=== PATIENT | female | born 1935 | race Caucasian/White ===

== ENCOUNTER 2016-11-20 14:20 | Inpatient (IN) | payer MEDICARE, BC ==
--- NOTE | ~2016-11-20 | DS ---
Discharge Summary [facility] [address] [place]. [address] NAME: KELLY VALE : 33 STATUS : DIS IN PAT#: [id number] AGE: 80 ADM/REG DATE : 11/20/16 MR#: [id number] REPORT SERV DATE: 11/30/16 DICTATED BY: YASMIN GALVAN DATE: 11/29/16 REPORT STATUS : Draft TRANSCRIBED BY: MODL DATE: 11/29/16 ADMISSION DATE: 11/20/2016 DISCHARGE DATE: 11/29/2016 PRINCIPAL DIAGNOSIS: Right hemispheric stroke with left-sided hemiparesis. SECONDARY DIAGNOSES: 1. Non ST-segment elevation myocardial infarction. 2. Type 2 diabetes. 3. Atrial fibrillation. 4. Hypertension. HISTORY OF PRESENT ILLNESS: Please see Dr. Griffin's dictation on 11/20/2016. HOSPITAL COURSE: Please see Dr. Rhodes's dictation on 11/28/2016 on interim summary. Subsequent hospital course, the patient was seen by Karina approved for transition of care to their facility. She had use of her left side, no visual field cuts or sensory deficit; however, some changes were made to her regimen. Her non-STEMI was felt to be secondary to the CVA itself and due to adrenergic surge she was changed over to labetalol instead of the nifedipine XL which had been crushed and put into her PEG tube against guidelines. She will continue Altace 10 mg per day, metformin 500 mg b.i.d., spironolactone 25 mg b.i.d., aspirin 325 mg per day, Lipitor 80 mg q.h.s. Continue PEG feeding with Glucerna. Follow up with Dr. Adriel Rivers following [facility] discharge. Greater than 30 minutes were spent in care of this patient on discharge planning on discharge day. DICTATED BY: Yu Archibald/ALBERTO Yasmin Galvan M.D. / [id number] CC: Yu Archibald M.D. [facility]
--- NOTE | ~2016-11-20 | CN ---
Consultation Report [facility] [address] [place]. [address] NAME: KELLY VALE : 33 STATUS : ADM IN [facility]#: [id number] AGE: 80 ADM/REG DATE : 11/20/16 MR#: [id number] REPORT SERV DATE: 11/21/16 DICTATED BY: CATHERINE CADENA DATE: 11/21/16 REPORT STATUS : Draft TRANSCRIBED BY: MODTracie DATE: 11/21/16 NEUROLOGICAL CRITICAL CARE VISIT DATE OF CONSULTATION: The patient was previously in room 129, transferred to CCU bed 8. HISTORY OF PRESENT ILLNESS: Ms. Vale is an 80-year-old female who was admitted with episode of TIA, presenting to the emergency room with left facial weakness and slurring of her speech, which resolved within three hours of onset. The patient's symptoms were improving gradually in the emergency room and resolved when the patient arrived on the floor and to her room in 109. The patient has a history of diabetes mellitus and hypertension, which have been under good control. On admission to the emergency room, the patient had a CT scan of the head which showed no abnormal changes, and CTA of the neck and brain which showed no occlusion, stenosis, or other abnormalities. The patient was started on aspirin and blood pressure was maintained in the 150 systolic range. The patient was evaluated by me after she arrived to room 109. At the time of the patient's neurological examination, examination of the cranial nerves showed no evidence of deficits and there was no facial weakness. The patient's voice appeared slightly raspy, but there was no true dysarthria, and there was no aphasia. The patient stated she was back to her baseline. The only subtle finding on cerebellar exam was very minimal endpoint tremor in the right smunpa-po-tbia. Around 1145 hours, the patient's nurse noted that patient was having complaints of right arm pain and indigestion. The nurse practitioner on-call was notified. The patient received Tums. An EKG was performed and showed changes compatible with right bundle-branch block, which apparently the patient had prior to admission. The patient was evaluated in the morning by Dr. Rhodes, the hospitalist with Internal Medicine Service, who found that the patient had significant weakness involving the left side of her body, had left facial weakness, and appeared to be lethargic. The patient did receive 0.5 mg of Ativan late last night. Emergency CT scan of the head was obtained, which showed hypodense area in the right MCA territory and anterior middle portions. The patient's troponins were elevated in the range of 60. Cardiology was called, and the patient was seen emergently by Cardiology attending. However, the patient was not started on heparin in view of the presence of the large infarction noted on the CT. The danger of bleeding into the large stroke was considered. The patient was seen by me emergently, appeared to be somnolent/lethargic, but arousable, followed simple commands, appeared to have gaze preference to the right; her eyes did cross midline. The rest of the neurological examination showed presence of left facial central weakness, left hemiplegia; left arm was flaccid and the left leg was flaccid. Right arm and right leg had strength within normal range. The patient had no evidence of aphasia; however, was somnolent and may have had slight dysarthria. Deep tendon reflexes were decreased in the left arm, trace in right arm, absent in both legs, which was a finding prior when the patient was evaluated last night. The patient's blood pressure currently was 150/70. The patient's heart rate was approximately 62 beats per minute, respirations were 18, and the patient was afebrile. I discussed the patient's case with the machine cage maker, Dr. Snowden, who agreed to transfer the patient to CCU in view of increasing lethargy and the Consultation Report [address] [place]. [address] NAME: KELLY VALE : 33 STATUS : ADM IN [facility]#: [id number] AGE: 80 ADM/REG DATE : 11/20/16 MR#: [id number] REPORT SERV DATE: 11/21/16 DICTATED BY: CATHERINE CADENA DATE: 11/21/16 REPORT STATUS : Draft TRANSCRIBED BY: MODL DATE: 11/21/16 possibility of needing intubation. The patient was referred for emergent MRI of the brain and MRA of the neck and brain. The MRI scan confirmed the presence of right frontotemporal and insular infarction in the right, which extended to the posterior aspect of the insular ribbon. There was no hemorrhagic infarction, but some amount of localized mass effect was present. MRA of the neck showed no evidence of clot or severe stenosis. MRA of the brain showed decreased flow signal within branches of the right middle cerebral artery corresponding to the location of acute infarct. [place] of [place] was intact. The scan was limited due to motion artifact. The patient was transferred to CCU, was evaluated while in the CCU unit. Her neurological exam at that time remained unchanged since prior to her transfer; however, the patient was somnolent and slightly more difficult to arouse. LABORATORY DATA: Repeat laboratory studies this morning showed troponins of 75.40. CPK of 1304. Glucose of 170. The patient's glycosylated hemoglobin was 5.7. Triglycerides 213, GFR of 47, and creatinine 1.10. IMPRESSION: 1. Acute right middle cerebral artery territory infarct, which appears to be nonhemorrhagic. 2. Acute daz-RP-pfkggfvjl myocardial infarction with markedly elevated troponins. 3. Could not exclude an embolic phenomena with cardiogenic emboli. 4. No evidence of stenosis or clot noted in the neck MRA; however, there was a decreased flow in the region of a stroke on the MRI of the brain. 5. History of hypertension. RECOMMENDATIONS: 1. To monitor the patient frequently with vital checks and neuro signs every hour to two hours. Maintain blood pressure below 185 and above 150. Avoid precipitous drops of blood pressure. DO NOT USE HYDRALAZINE IV. 2. Avoid agents that are very strongly antihypertensive medications that drop blood pressure abruptly and precipitously. If needed, use a small amount of pressors, Levophed to maintain the patient's blood pressure at that mentioned level 150-180 to maintain perfusion to possible residual ischemic area of the left MCA territory. Monitor the patient's respiratory status and consider intubation if the patient has deterioration, use mild hyperventilation initially for a short period of time. Prolonged hyperventilation and respiratory alkalosis has not been proven to be effective in decreasing intracranial pressure in the long run. Although hemispherectomy has been used to relieve malignant pressures secondary to hemispheric stroke, the patient certainly is not at that point at this time. Monitor the patient with repeated CT scans, and we will order a repeat CT scan of the head for tomorrow. A total of 55 minutes was spent taking care of the patient and arranging for transfer to the CCU, coordinating the patient's care. We appreciate Dr. Snowden's help in taking care of this patient. Consultation Report [facility] [address] [place]. [address] NAME: KELLY VALE : 33 STATUS : ADM IN PAT#: [id number] AGE: 80 ADM/REG DATE : 11/20/16 MR#: [id number] REPORT SERV DATE: 11/21/16 DICTATED BY: CATHERINE CADENA DATE: 11/21/16 REPORT STATUS : Draft TRANSCRIBED BY: ALBERTO DATE: 11/21/16 RASHID/ALBERTO Catherine Cadena MD / [id number] CC: Ramses Rhodes M.D.
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
--- NOTE | ~2016-11-20 | IDS ---
Interim Discharge Summary [facility] [address] [place]. [address] NAME: KELLY VALE : 33 STATUS : ADM IN PAT#: [id number] AGE: 80 ADM/REG DATE : 11/20/16 MR#: [id number] REPORT SERV DATE: 11/27/16 DICTATED BY: CLEMENTE RHODES DATE: 11/27/16 REPORT STATUS : Draft TRANSCRIBED BY: MODL DATE: 11/27/16 ADMISSION DATE: 11/20/2016 DISCHARGE DATE: CONSULTANTS: 1. Dr. Catherine Cadena and Dr. Sonam Larsen, Neurology. 2. Dr. Ramu Stein, Cardiology. 3. Dr. Roger Jacinto, GI. PROBLEM LIST: 1. Acute ischemic stroke, right middle cerebral artery, large, 11/20/2016. 2. Acute vcv-LY-szfkyerta myocardial infarction, 11/20/2016. 3. Hypertension. 4. History of breast cancer, left side, resected 2003. 5. Paroxysmal atrial fibrillation. 6. Diabetes mellitus type 2 with A1c 5.7%. HISTORY: This patient came to the ER at [facility], had trouble sleeping the night before, had some diarrhea. She reportedly dropped a glass in the kitchen. The went to check on her, noticed that her speech was garbled. She was brought to the emergency room. Speech and left hand were reportedly improving. Imaging on admission included CTA of the brain and neck as a stroke protocol. No acute intracranial abnormality. Small right frontal meningioma. Some calcification and atherosclerosis in the carotid siphons. The patient was seen by Neurology, Dr. Cadena. She was admitted to the medical floor. Unfortunately, through that night, she developed right-sided chest pain. There were no acute EKG changes; however, her troponin went up significantly to 63.4 and then 75.4. She was seen by Cardiology, Dr. Ramu Stein early the next morning along with me and we met with Dr. Cadena. Because of the fact that she simultaneously was more drowsy and I noticed significant weakness in her left arm, I had to get a stat CT scan of the brain early on that morning of 11/21/2016. This revealed a large right middle cerebral artery infarction involving the frontal and insular region with mild mass effect. Because of this, Dr. Cadena felt, we could not give her heparin drip likely would normally for an acute WA. We could give her aspirin, but she was also a bit lethargic, so we were concerned about her ability to swallow. Dr. Cadena had her moved to the ICU where blood pressure could be monitored very closely. The patient indeed was not felt to be able to swallow, so had an NG tube for her medications and eventually had GI, Dr. Jacinto, see her and PEG tube was placed on 11/24/2016. The patient has had several followup CTs of the brain, to watch for swelling and edema; most recent 11/27/2016 showing stable appearance of the right MCA territory infarction, now described as having no mass effect and there is no hemorrhage. The patient is starting to move her left arm and hand, moving her left shoulder. She has Interim Discharge Summary [address] [place]. [address] NAME: KELLY VALE : 33 STATUS : ADM IN [facility]#: [id number] AGE: 80 ADM/REG DATE : 11/20/16 MR#: [id number] REPORT SERV DATE: 11/27/16 DICTATED BY: CLEMENTE RHODES DATE: 11/27/16 REPORT STATUS : Draft TRANSCRIBED BY: MODTracie DATE: 11/27/16 always done better with her left leg than the left arm. She is tolerating tube feedings and therapy, and we were planning for her to go to inpatient rehab. Cardiology has been adjusting medications. In addition to aspirin and Lipitor, they have added spironolactone, Altace, and Procardia XL. The patient has developed a small painful ulcer on the right lower lip, suspected to be fever blister, so we have added topical Abreva. The patient has diabetes mellitus with usual therapy with glipizide at home. She has an A1c that is 5.7, but her sugars are now going up over 200, so we are adding metformin. The patient's tube feeding is being tolerated at full dose at this time, it is Jevity 1.2 at 65 mL/h, supplemented with 150 mL of water every six hours. RSG/MODL Clemente Rhodes M.D. / [id number] CC: Clemente Rhodes M.D.
--- NOTE | ~2016-11-20 | CN ---
Consultation Report [facility] [address] [place]. [address] NAME: KELLY VALE : 33 STATUS : ADM IN PAT#: [id number] AGE: 80 ADM/REG DATE : 11/20/16 MR#: [id number] REPORT SERV DATE: 11/21/16 DICTATED BY: PEMA PEREZ DATE: 11/21/16 REPORT STATUS : Draft TRANSCRIBED BY: MODL DATE: 11/21/16 CARDIOLOGY CONSULTATION DATE OF CONSULTATION: 11/21/2016 REASON FOR CONSULTATION: Regarding xij-JS-iahbvvdgh myocardial infarction. HISTORY OF PRESENT ILLNESS: Ms. Vale is a pleasant 80-year-old woman, who is a patient of Dr. Jaden Barbosa. She presented with complaints of left-sided weakness, was thought to be initially TIA at that time. However over the course of the last 24 hours, her symptoms have progressed and now appears to be consistent with a large MCA stroke that was documented on sequential CT scans. In this setting, the patient developed chest discomfort and had a significant troponin elevation with latest troponin up to 64 from less than 0.02 on admission. She is no longer having any chest discomfort. She is showing no signs of congestive heart failure. The patient has a known history of coronary disease, status post remote LAD [place] [address] Kian Ibarra. The patient has multiple risk factors for coronary disease as well. In the preceding weeks, she has had no complaints of chest pain or chest discomfort according to the patient's , who was present at the history exam this morning. PAST MEDICAL HISTORY: Notable for diabetes, hypertension, history of a left mastectomy for breast cancer in 2013, cholecystectomy, knee surgeries, osteoarthritis, coronary disease, status post stent placement by Dr. Ibarra in 2004. FAMILY HISTORY: Negative for premature coronary disease. SOCIAL HISTORY: Negative for tobacco or alcohol. She is . REVIEW OF SYSTEMS: The patient is very lethargic, unable to review systems, although I was able to ask her specifically about chest discomfort, which she had denied this morning, but did note she was having chest discomfort last evening. PHYSICAL EXAMINATION: VITAL SIGNS: Blood pressure this morning of 152/68, it has ranged between 183/77, the current value with the lowest, pulse of 78, respirations 16. IMAGING PROCEDURE: EKG shows sinus rhythm, normal UT interval, right bundle branch block, normal QT interval. No evidence for acute ischemia or infarction. LABORATORY VALUES: Troponin of 63.7. White count 7.4, hematocrit 40, platelet count of 189. Sodium 140, potassium 4, creatinine of 1.1. IMPRESSION: This is an 80-year-old woman who unfortunately seems to be suffering a large MCA Consultation Report [place] [id number] [place]. [address] NAME: KELLY VALE : 33 STATUS : ADM IN PAT#: [id number] AGE: 80 ADM/REG DATE : 11/20/16 MR#: [id number] REPORT SERV DATE: 11/21/16 DICTATED BY: PEMA PEREZ DATE: 11/21/16 REPORT STATUS : Draft TRANSCRIBED BY: ALBERTO DATE: 11/21/16 stroke. The most recent CT scan demonstrated that there is some mass effect. Neurology is seeing the patient and notes that because of the size of the stroke, they do not want her to receive anticoagulation. They did agree to aspirin, which I would continue. The patient does not appear to be able to take oral medications. So, she will need to receive the aspirin rectally. Unfortunately, most of the things we would want to do in regard to her pjo-AT-[id number] TX are contraindicated with her large CVA. We can use intravenous nitroglycerin to try to titrate blood pressure between 150 and 180. If absolutely necessary, we can use some pressor agents to try to increase pressure, but I do believe this does increase the risk for enlarging the myocardial infarction and making her more arrhythmogenic, so we would like to try to avoid it if possible. Likely could consider using Levophed as a possible agent if we need to increase her blood pressure. The choices are obviously very limited. According to Dr. Cadena, systolic blood pressure ranged between 150 and 180. Because of careful titration of blood pressure, we will move the patient to the intermediate medical care unit. CORRINA/ALBERTO Pema Perez M.D. / [id number] CC: Yu Cloud M.D.
--- NOTE | ~2016-11-20 | CN ---
Consultation Report [facility] [address] [place]. [address] NAME: KELLY VALE : 33 STATUS : ADM IN [facility]#: [id number] AGE: 80 ADM/REG DATE : 11/20/16 MR#: [id number] REPORT SERV DATE: 11/23/16 DICTATED BY: ROGER CAMPBELL DATE: 11/23/16 REPORT STATUS : Draft TRANSCRIBED BY: MODL DATE: 11/23/16 INPATIENT CONSULT NOTE DATE OF CONSULTATION: 11/23/2016 REASON FOR CONSULTATION: PEG tube placement. HISTORY OF PRESENT ILLNESS: Mrs. Vale is an 80-year-old female, who was admitted with symptoms of left-sided facial weakness and slurring her speech. Initially, the patient appeared to have recovered and had only suffered a mild TIA. Later on hospitalization, the patient sustained an episode involving significant weakness on the left side of her body and left facial weakness. CT scan of the head was obtained and showed a hypodense area in the right MCA territory and anterior middle portions, apparently just having sustained an acute stroke. The patient was transferred to the CCU for critical care and monitoring. The patient has been doing well over the last several days, however, has been unable to take nutrition on her own and failed a speech and swallow evaluation on the day prior to this consultation. The patient was noted to have a significant vallecular pooling with essentially all consistencies and had a deep penetration and silent aspiration with pudding consistency food and nectar thick liquids. GI was therefore consulted for consideration of PEG tube. The patient has been on aspirin for treatment of her stroke, but no other anticoagulants. The patient denies having had any other prior abdominal surgery aside for cholecystectomy. Currently, no signs of infection. No fevers or chills. REVIEW OF SYSTEMS: All systems reviewed with the patient and were negative aside from what was mentioned in the history of present illness. PAST MEDICAL HISTORY: Includes: 1. Diabetes. 2. Hypertension. 3. History of breast cancer. 4. Status post cholecystectomy. 5. Osteoarthritis. 6. Coronary artery disease, status post stent placement in 2004. FAMILY HISTORY: The patient has no family history of GI-related malignancy. SOCIAL HISTORY: No tobacco, alcohol, or illicit substance use. ALLERGIES: THE PATIENT HAS NO KNOWN DRUG ALLERGIES. OUTPATIENT MEDICATIONS: Include: Consultation Report [place] [id number] [place]. [address] NAME: KELLY VALE : 33 STATUS : ADM IN PAT#: [id number] AGE: 80 ADM/REG DATE : 11/20/16 MR#: [id number] REPORT SERV DATE: 11/23/16 DICTATED BY: ROGER CAMPBELL DATE: 11/23/16 REPORT STATUS : Draft TRANSCRIBED BY: ALBERTO DATE: 11/23/16 1. Benazepril. 2. Lipitor. 3. Toprol. 4. Karina aspirin 325. 5. Multivitamin. 6. Caltrate 600 with vitamin D. 7. Vitamin C. 8. Vitamin E. 9. Folic acid. 10.Glucotrol. 11.Xalatan eyedrops. 12.Ativan. 13.Ultracet tablets. PHYSICAL EXAMINATION: VITAL SIGNS: Most recent vital signs include a temperature of 98.1, pulse of 71, blood pressure is 164/71, and saturating 98% on 2 L nasal cannula oxygen. GENERAL INSPECTION: Reveals an elderly female lying in bed, in no apparent distress. HEENT: Head is normocephalic, atraumatic with normal inspection of oral mucosa, which appears to be slightly dry. The patient does have an NG tube going down her right nares. Pupils appear equal and round. Sclerae nonicteric. NECK: Supple without lymphadenopathy. HEART: Rate is regular with normal S1, S2. LUNGS: Lung sounds are clear to auscultation bilaterally without wheezes, rales, or rhonchi. ABDOMEN: Soft, nontender, nondistended with normoactive bowel sounds. No surgical scars were apparent. No masses were palpated. EXTREMITIES: The patient had no cyanosis, clubbing, or edema. SKIN: No jaundice or rash. NEUROLOGIC: Motor deficits were not tested for the patient was alert and appeared to be oriented. Judgment appeared to be intact. LABORATORY STUDIES: Most recent laboratory results include CBC that showed a white count of 9.5, hemoglobin 13.3, and a platelet count of 161,000. Renal function panel was unremarkable aside from an elevated BUN of 26. Albumin was 3.1. Most recent INR was normal at 1.1 with a PTT of 29. No pertinent imaging to review. ASSESSMENT AND PLAN: Mrs. Vale is a very pleasant 80-year-old female, who unfortunately just sustained a stroke affecting the left side of her body. The patient showed evidence of aspiration with pudding and nectar thick liquids. She has been unable to feed herself. We, therefore, assist with her nutritional needs at least in the short-term with placement of a PEG tube. The patient should be kept n.p.o. I would also hold her aspirin for the time being. Consultation Report [place] [id number] [place]. [address] NAME: KELLY VALE : 33 STATUS : ADM IN [facility]#: [id number] AGE: 80 ADM/REG DATE : 11/20/16 MR#: [id number] REPORT SERV DATE: 11/23/16 DICTATED BY: ROGER CAMPBELL DATE: 11/23/16 REPORT STATUS : Draft TRANSCRIBED BY: ALBERTO DATE: 11/23/16 Thank you very much for this interesting consult. Please call with any questions or concerns you might have. [facility]/ALBERTO Roger Campbell MD / [id number] CC: Ramses Rhodes M.D.
--- NOTE | ~2016-11-20 | EGD ---
EGD REPORT [facility] [address] [address] NAME: SHERIDAN VALE : 33 STATUS : ADM IN PAT#: [id number] AGE: 80 ADM/REG DATE : 11/20/16 MR#: [id number] REPORT SERV DATE: 11/24/16 DICTATED BY: ROGER CAMPBELL DATE: 11/24/16 REPORT STATUS : Draft TRANSCRIBED BY: [facility] DATE: 11/24/16 Endoscopy Center Patient Name: Sheridan Vale Date of : 1935 Attending MD: ROGER CAMPBELL MD Procedure Date No Time: 11/24/2016 Procedure: Upper GI endoscopy Indications: Place PEG because patient is unable to eat, Place PEG due to neurological disorder causing impaired swallowing Medicines: Monitored Anesthesia Care Complications: No immediate complications. Estimated blood loss: Minimal. Procedure: Pre-Anesthesia Assessment: - ASA Grade Assessment: IV - A patient with severe systemic disease that is a constant threat to life. After obtaining informed consent, the endoscope was passed under direct vision. Throughout the procedure, the patient's blood pressure, pulse, and oxygen saturations were monitored continuously. The GIF [id number] was introduced through the mouth, and advanced to the second part of duodenum. The upper GI endoscopy was accomplished without difficulty. The patient tolerated the procedure well. Findings: No gross lesions were noted in the entire esophagus. The entire examined stomach was normal. The patient was placed in the supine position for PEG placement. The stomach was insufflated to appose gastric and abdominal tapia. A site was located in the body of the stomach with excellent transillumination and manual external pressure for placement. The abdominal wall was marked and prepped in a sterile manner. The area was anesthetized with 5 mL of 1% lidocaine. The trocar needle was introduced through the abdominal wall and into the stomach under direct endoscopic view. A snare was introduced through the endoscope and opened in the gastric lumen. The guide wire was passed through the trocar and into the open snare. The snare was closed around the guide wire. The endoscope and snare were removed, pulling the wire out through the mouth. A skin incision was made at the site of needle insertion. The externally removable 20 Fr EndoVive Safety gastrostomy tube was lubricated. The G-tube was passed over the guide wire through the mouth, and into the stomach. The trocar needle was removed, and the gastrostomy tube was pulled out from the stomach through the skin. The guide wire was removed, and the external bumper attached to the gastrostomy tube. The feeding tube was then cut to an appropriate length. The final position of the gastrostomy tube was confirmed by skin EGD REPORT [address] [place]. [address] NAME: SHERIDAN VALE : 33 STATUS : ADM IN [facility]#: [id number] AGE: 80 ADM/REG DATE : 11/20/16 MR#: [id number] REPORT SERV DATE: 11/24/16 DICTATED BY: ROGER CAMPBELL DATE: 11/24/16 REPORT STATUS : Draft TRANSCRIBED BY: [employer] DATE: 11/24/16 marking noted to be 3 cm at the external bumper. The final tension and compression of the abdominal wall by the PEG tube and external bumper were checked and revealed that the bumper was loose and lightly touching the skin. The feeding tube was capped, and the tube site was cleaned and dressed. No gross lesions were noted in the entire examined duodenum. The cardia and gastric fundus were normal on retroflexion. Impression: - An externally removable PEG placement was successfully completed. Recommendation: - Return patient to hospital [facility] for ongoing care. - Please follow the post-PEG recommendations including: antibiotic ointment to site, change dressing once per day, clean site with soap and water daily and dry thoroughly, remove dressing after 2 weeks, NPO x4 hrs then water today, may use PEG today for meds and water and may use PEG tomorrow for feedings. Procedure Code(s): --- Professional --- 00121, Esophagogastroduodenoscopy, flexible, transoral; with directed placement of percutaneous gastrostomy tube Diagnosis Code(s): --- Professional --- R63.3, Feeding difficulties Z43.1, Encounter for attention to gastrostomy R29.81, Other symptoms and signs involving the nervous system R13.10, Dysphagia, unspecified CPT copyright 2013 [employer]. All rights reserved. The codes documented in this report are preliminary and upon certified coder review may be revised to meet current compliance requirements. Roger Campbell MD ROGER CAMPBELL MD 11/24/2016 9:15 AM This report has been signed electronically. Number of Addenda: 0 Note Initiated On: 11/24/2016 8:43 AM Scope Withdrawal Time 0 hours 0 minutes 0 seconds [address] [place] [address]
--- NOTE | ~2016-11-20 | HP ---
History And Physical [place] [id number] [facility] [place]. [address] NAME: KELLY VALE : 33 STATUS : ADM IN LOCATED WITHIN [facility]#: [id number] AGE: 80 ADM/REG DATE : 11/20/16 MR#: [id number] REPORT SERV DATE: 11/20/16 DICTATED BY: CLEMENTE MARTIN DATE: 11/20/16 REPORT STATUS : Draft TRANSCRIBED BY: MODTracie DATE: 11/20/16 DATE OF ADMISSION: 11/20/2016 APPLICATIONS MANAGER: Dr. Barbosa. HISTORY OF PRESENT ILLNESS: This is an 80-year-old female, who comes in for slurred speech. The patient denies any previous history of stroke or heart attack. She has diabetes and hypertension, which she says is under control. She was not able to sleep last night because of the thunder and this morning she started having some abdominal pain. She had diarrhea x5, but no bleeding. The noted that there was a glass that was dropping in the kitchen. He went to see that his has been trying to grab the frosted mug, but she kept on dropping it on her left hand. When he asked what was going on, she tried to answer and he could not understand her because it was garbled. He then called 911, and they brought the patient here, and he noted that the speech and strength is getting better. However, the original left-sided weakness of the face is still present, but a little bit better. The patient was evaluated in the emergency room, and they did a chest which showed borderline cardiomegaly. No acute cardiopulmonary abnormality. CTA of the neck and brain showing tortuous carotid arteries, calcified plaque in the carotid siphons and carotid bulbs, but they are patent bilaterally including the vertebral arteries. No evidence of significant stenosis or acute abnormality. No acute intracranial abnormality was found. Calcific atherosclerosis, small right frontal meningioma. The patient was discussed with the neurologist, they said no tPA needed and they called the hospitalist to admit the patient. There was no note of any seizures, fever, chills, shortness of breath, or chest pain. There are no urinary changes. No cough. There was no loss of consciousness or confusion. No rashes. The rest of the 14-point review of systems is negative except as above. PAST MEDICAL HISTORY: Includes diabetes, which she said is under control with the sugar never going above 200; hypertension; history of left mastectomy for breast cancer in 2013; cholecystectomy in 2012; knee surgeries; osteoarthritis; CAD with stent placement in 2004. ALLERGIES: SHE HAS NO KNOWN DRUG ALLERGIES. MEDICATIONS: Include vitamin C, aspirin, Lipitor, benazepril, calcium, folic acid, glipizide, Xalatan, Ativan, metoprolol, multivitamin, vitamin E, and Ultracet. FAMILY HISTORY: Mom had CAD, when she was 75. Dad when he was 76. SOCIAL HISTORY: The patient does not smoke, drink, or use recreational drugs. PHYSICAL EXAMINATION: GENERAL: The patient is alert and oriented x3, not in cardiopulmonary distress. VITAL SIGNS: Include temperature of 98.5, blood pressure of 159/42, pulse rate of 58, and respirations 99% on room air. NECK: She has supple neck. No JVD or carotid bruit. No lymphadenopathy. HEENT: [place] conjunctivae. Anicteric sclerae. No pharyngeal erythema. LUNGS: Clear lungs. No rales, no wheezes. History And Physical [address] [address] NAME: KELLY VALE : 33 STATUS : ADM IN LOCATED WITHIN [facility]#: [id number] AGE: 80 ADM/REG DATE : 11/20/16 MR#: [id number] REPORT SERV DATE: 11/20/16 DICTATED BY: CLEMENTE MARTIN DATE: 11/20/16 REPORT STATUS : Draft TRANSCRIBED BY: ALBERTO DATE: 11/20/16 CARDIOVASCULAR: Regular rate and rhythm. No murmurs. ABDOMEN: Positive bowel sounds. Soft, nontender, no masses. EXTREMITIES: Fair pulses. No edema. NEUROLOGIC: showing left facial deviation, slightly slurred, but I can comprehend it. Rest of the cranial nerves is within normal limits. The patient can move both lower and upper extremity equally and symmetrical. LABORATORY DATA: Reveals a chemistry within normal limits. CBC within normal limits. ASSESSMENT: 1. Transient ischemic attack versus cerebrovascular accident. 2. Coronary artery disease with stent. 3. Diabetes. 4. History of left mastectomy for breast cancer. 5. Hypertension. 6. Diarrhea. PLAN: The patient has a neurological event, not sure if this is just a TIA or going to be a full blown CVA. We will admit her to the hospital and do neuro checks, echo, MRI, and we will check hemoglobin A1c and lipid profile. We will continue the aspirin and start Plavix for now and increase the Lipitor. We will get Neuro to consult and see if they would want further evaluation aside from PT, OT, and Speech, and I would defer to them if they want to continue the Plavix or not. We will place her on subcu insulin protocol. Continue her diabetic and hypertension medications for now. We will check the stool. This has been explained to her in front of the . They agreed and understood the plan. PALOMA/ALBERTO Clemente Martin M.D. / [id number] CC: Yu Mcleod M.D.
[2016-11-20 12:56] LABS: BASOPHILS 0.7 %; BASOPHILS ABSOLUTE 0.05 10/3/uL (0.0-0.16); EOSINOPHILS 1.8 %; EOSINOPHILS ABSOLUTE 0.13 10/3/uL (0.0-0.53); ER CBC TAT 0 Hrs 09 Mins; HEMATOCRIT 40.1 % (36.0-48.0); HEMOGLOBIN 13.5 g/dL (12.0-16.0); IMMATURE GRANULOCYTES 0.3 %; IMMATURE GRANULOCYTES ABSOLUTE 0.02 10/3/uL (0.0-0.11); MEAN CORPUS HGB CONC 33.7 g/dL (32.0-36.0); MEAN CORPUSCULAR HEMOGLOB 32.5 pg (26.0-34.0); MEAN PLATELET VOLUME 11.1 fL (9.2-13.0); MONOCYTES ABSOLUTE 0.81 10/3/uL (0.21-1.20); NEUTROPHILS 52.2 %; NEUTROPHILS ABSOLUTE 3.85 10/3/uL (2.02-8.40); PLATELET COUNT 189 10/3/uL (150-400); RBC DISTRIBUTION WIDTH 13.2 % (12.0-16.0); RED CELL COUNT 4.15 10/6/uL (4.0-5.6); WHITE BLOOD CELLS 7.4 10/3/uL (4.5-10.5)
[2016-11-20 12:57] LABS: MEAN CORPUSCULAR VOLUME 96.6 fL (80-100)
[2016-11-20 12:58] LABS: MANUAL DIFF NO %
[2016-11-20 13:11] LABS: A/G RATIO 1.3 (0.7-1.9); ALBUMIN 3.8 G/DL (3.5-5.0); ALKALINE PHOSPHATASE 72 U/L (45-117); BUN (BLOOD UREA NITROGEN) 22 MG/DL (6-23); CALCIUM, SERUM 9.2 MG/DL (8.5-10.4); CHLORIDE, SERUM 106 MMOL/L (96-112); CO2 (CARBON DIOXIDE) 27 MMOL/L (24-34); GFR AFRICAN AMERICAN 54 ML/MIN (>=60); GFR NON AFRICAN AMERICAN 47 ML/MIN (>=60); SGOT(AST) 23 U/L (5-40); SGPT(ALT) 31 U/L (5-65); SODIUM, SERUM 140 MMOL/L (135-148); TOTAL BILIRUBIN 0.7 MG/DL (0-1.2); TOTAL PROTEIN 6.8 G/DL (6.0-8.5); TROPONIN I <0.02 NG/ML (<0.05)
[2016-11-20 13:14] LABS: GLUCOSE, SERUM 135 MG/DL (60-99)
[2016-11-20 13:16] LABS: INTERNATIONAL NORMAL RATI 1.1 UNITS (-); PARTIAL THROMBO TIME 29.1 SEC (22.5-37.2); PROTIME (NOT ORD) 13.6 SEC (12.0-14.5)
[~2016-11-20 14:20] MED LIST: ACET500CAP PO; ASAEC PO; ATV.5 PO; B12100T PO; CALTRA600D PO; GLUCOTROL5 PO; KLOR-CON 1010 MEQ PO; KLOR-CON M2020 MEQ PO; L20 PO; LIPITOR40 PO; LOP50 PO; LOTE40 PO; MULTIPLE VIT PO; MURO1282% OPH; MURO5OOIN OPH; NORV10 PO; PCET PO; PROMEGA PO; VITE1000 PO; XALAT OPH
[2016-11-20] MEDS ORDERED: LOTE40 PO (14:34)
[2016-11-20] MEDS ORDERED: TOPXL50 PO (14:35)
[2016-11-20] MEDS ORDERED: ASABAYER PO (14:35)
[2016-11-20] MEDS ORDERED: LIPITOR40 PO (14:35)
[2016-11-20] MEDS ORDERED: THERGRANM PO (14:35)
[2016-11-20] MEDS ORDERED: VITC500 PO (14:36)
[2016-11-20] MEDS ORDERED: VITE PO (14:36)
[2016-11-20] MEDS ORDERED: FOLIC PO (14:36)
[2016-11-20] MEDS ORDERED: CALTRA600D PO (14:36)
[2016-11-20] MEDS ORDERED: GLUCOTROL5 PO (14:37)
[2016-11-20] MEDS ORDERED: MURO1285% OPH (14:37)
[2016-11-20] MEDS ORDERED: XALAT OPH (14:37)
[2016-11-20] MEDS ORDERED: MURO5OOIN OPH (14:37)
[2016-11-20] MEDS ORDERED: ATV.5 PO (14:38)
[2016-11-20] MEDS ORDERED: ULTRACET PO (14:38)
[2016-11-20 18:22] LABS: CHOL/HDL RATIO(NOT ORDER) 2.3 (0-5); CHOLESTEROL 121 MG/DL (< 200); HDL CHOLESTEROL 52 MG/DL (> 49); LDL CHOLESTEROL 27 MG/DL (< 130); NON-HDL CHOLESTEROL 69 MG/DL (< 160)
[2016-11-20 18:23] LABS: TRIGLYCERIDE 213 MG/DL (< 150)
[2016-11-21 05:50] LABS: CKMB INDEX (NOT ORD) 9.2
[2016-11-21 06:37] LABS: TROPONIN I 63.7 NG/ML (<0.05)
[2016-11-21 10:43] LABS: BUN (BLOOD UREA NITROGEN) 23 MG/DL (6-23); CALCIUM, SERUM 9.2 MG/DL (8.5-10.4); CHLORIDE, SERUM 110 MMOL/L (96-112); CK-MB 111.5 NG/ML; CO2 (CARBON DIOXIDE) 26 MMOL/L (24-34); CPK 1304 U/L (0-200); CREATININE 0.83 MG/DL (0.55-1.02); GFR AFRICAN AMERICAN 76 ML/MIN (>=60); GFR NON AFRICAN AMERICAN 66 ML/MIN (>=60); POTASSIUM, SERUM 3.9 MMOL/L (3.5-5.3); SODIUM, SERUM 143 MMOL/L (135-148)
[2016-11-21 10:45] LABS: CKMB INDEX (NOT ORD) 8.6; GLUCOSE, SERUM 170 MG/DL (60-99)
[2016-11-22 03:33] LABS: BASOPHILS 0.1 %; BASOPHILS ABSOLUTE 0.01 10/3/uL (0.0-0.16); EOSINOPHILS 0.2 %; EOSINOPHILS ABSOLUTE 0.02 10/3/uL (0.0-0.53); HEMATOCRIT 38.2 % (36.0-48.0); HEMOGLOBIN 12.7 g/dL (12.0-16.0); IMMATURE GRANULOCYTES 0.1 %; IMMATURE GRANULOCYTES ABSOLUTE 0.01 10/3/uL (0.0-0.11); LYMPHOCYTES 15.2 %; LYMPHOCYTES ABSOLUTE 1.56 10/3/uL (0.67-4.30); MEAN CORPUS HGB CONC 33.2 g/dL (32.0-36.0); MEAN CORPUSCULAR HEMOGLOB 32.3 pg (26.0-34.0); MEAN CORPUSCULAR VOLUME 97.2 fL (80-100); MONOCYTES 15.4 %; MONOCYTES ABSOLUTE 1.58 10/3/uL (0.21-1.20); NEUTROPHILS ABSOLUTE 7.06 10/3/uL (2.02-8.40); PLATELET COUNT 177 10/3/uL (150-400); RBC DISTRIBUTION WIDTH 13.1 % (12.0-16.0); RED CELL COUNT 3.93 10/6/uL (4.0-5.6); WHITE BLOOD CELLS 10.2 10/3/uL (4.5-10.5)
[2016-11-22 03:39] LABS: MANUAL DIFF NO %
[2016-11-22 03:44] LABS: BUN (BLOOD UREA NITROGEN) 30 MG/DL (6-23); CALCIUM, SERUM 8.8 MG/DL (8.5-10.4); CHLORIDE, SERUM 111 MMOL/L (96-112); CO2 (CARBON DIOXIDE) 25 MMOL/L (24-34); CREATININE 0.78 MG/DL (0.55-1.02); GFR AFRICAN AMERICAN 82 ML/MIN (>=60); GFR NON AFRICAN AMERICAN 71 ML/MIN (>=60); GLUCOSE, SERUM 141 MG/DL (60-99); POTASSIUM, SERUM 3.6 MMOL/L (3.5-5.3); SODIUM, SERUM 145 MMOL/L (135-148)
[2016-11-23 05:54] LABS: BASOPHILS 0.2 %; BASOPHILS ABSOLUTE 0.02 10/3/uL (0.0-0.16); EOSINOPHILS 0.5 %; EOSINOPHILS ABSOLUTE 0.05 10/3/uL (0.0-0.53); HEMATOCRIT 39.4 % (36.0-48.0); HEMOGLOBIN 13.3 g/dL (12.0-16.0); IMMATURE GRANULOCYTES 0.2 %; IMMATURE GRANULOCYTES ABSOLUTE 0.02 10/3/uL (0.0-0.11); LYMPHOCYTES 19.1 %; LYMPHOCYTES ABSOLUTE 1.81 10/3/uL (0.67-4.30); MEAN CORPUS HGB CONC 33.8 g/dL (32.0-36.0); MEAN CORPUSCULAR HEMOGLOB 32.8 pg (26.0-34.0); MEAN PLATELET VOLUME 11.2 fL (9.2-13.0); MONOCYTES 14.2 %; MONOCYTES ABSOLUTE 1.34 10/3/uL (0.21-1.20); NEUTROPHILS 65.8 %; NEUTROPHILS ABSOLUTE 6.22 10/3/uL (2.02-8.40); PLATELET COUNT 161 10/3/uL (150-400); RED CELL COUNT 4.06 10/6/uL (4.0-5.6); WHITE BLOOD CELLS 9.5 10/3/uL (4.5-10.5)
[2016-11-23 05:55] LABS: MANUAL DIFF NO %
[2016-11-23 06:04] LABS: ALBUMIN 3.1 G/DL (3.5-5.0); CALCIUM, SERUM 8.8 MG/DL (8.5-10.4); CHLORIDE, SERUM 110 MMOL/L (96-112); CO2 (CARBON DIOXIDE) 25 MMOL/L (24-34); CREATININE 0.79 MG/DL (0.55-1.02); GFR AFRICAN AMERICAN 81 ML/MIN (>=60); GFR NON AFRICAN AMERICAN 70 ML/MIN (>=60); GLUCOSE, SERUM 168 MG/DL (60-99); POTASSIUM, SERUM 4.1 MMOL/L (3.5-5.3); SODIUM, SERUM 142 MMOL/L (135-148)
[2016-11-23 06:06] LABS: BUN (BLOOD UREA NITROGEN) 26 MG/DL (6-23); PHOSPHORUS, SERUM 2.9 MG/DL (2.5-4.5)
[2016-11-24 11:09] LABS: BASOPHILS 0.2 %; BASOPHILS ABSOLUTE 0.02 10/3/uL (0.0-0.16); EOSINOPHILS 0.7 %; EOSINOPHILS ABSOLUTE 0.07 10/3/uL (0.0-0.53); HEMATOCRIT 42.4 % (36.0-48.0); HEMOGLOBIN 14.1 g/dL (12.0-16.0); IMMATURE GRANULOCYTES 0.2 %; IMMATURE GRANULOCYTES ABSOLUTE 0.02 10/3/uL (0.0-0.11); LYMPHOCYTES 19.6 %; LYMPHOCYTES ABSOLUTE 2.01 10/3/uL (0.67-4.30); MEAN CORPUS HGB CONC 33.3 g/dL (32.0-36.0); MEAN CORPUSCULAR HEMOGLOB 32.2 pg (26.0-34.0); MEAN CORPUSCULAR VOLUME 96.8 fL (80-100); MEAN PLATELET VOLUME 11.4 fL (9.2-13.0); MONOCYTES 9.3 %; MONOCYTES ABSOLUTE 0.95 10/3/uL (0.21-1.20); NEUTROPHILS ABSOLUTE 7.19 10/3/uL (2.02-8.40); PLATELET COUNT 168 10/3/uL (150-400); RBC DISTRIBUTION WIDTH 12.7 % (12.0-16.0); RED CELL COUNT 4.38 10/6/uL (4.0-5.6); WHITE BLOOD CELLS 10.3 10/3/uL (4.5-10.5)
[2016-11-24 11:10] LABS: MANUAL DIFF NO %
[2016-11-24 11:31] LABS: ALBUMIN 3.1 G/DL (3.5-5.0); CALCIUM, SERUM 8.8 MG/DL (8.5-10.4); CHLORIDE, SERUM 106 MMOL/L (96-112); CO2 (CARBON DIOXIDE) 28 MMOL/L (24-34); CREATININE 0.76 MG/DL (0.55-1.02); GFR AFRICAN AMERICAN 85 ML/MIN (>=60); GFR NON AFRICAN AMERICAN 73 ML/MIN (>=60); GLUCOSE, SERUM 140 MG/DL (60-99); POTASSIUM, SERUM 4.1 MMOL/L (3.5-5.3); SODIUM, SERUM 142 MMOL/L (135-148)
[2016-11-24 11:39] LABS: BUN (BLOOD UREA NITROGEN) 21 MG/DL (6-23)
[2016-11-26 05:06] LABS: BUN (BLOOD UREA NITROGEN) 31 MG/DL (6-23); CALCIUM, SERUM 8.4 MG/DL (8.5-10.4); CHLORIDE, SERUM 107 MMOL/L (96-112); CO2 (CARBON DIOXIDE) 26 MMOL/L (24-34); CREATININE 0.73 MG/DL (0.55-1.02); GFR AFRICAN AMERICAN 89 ML/MIN (>=60); GFR NON AFRICAN AMERICAN 77 ML/MIN (>=60); GLUCOSE, SERUM 168 MG/DL (60-99); POTASSIUM, SERUM 3.8 MMOL/L (3.5-5.3); SODIUM, SERUM 142 MMOL/L (135-148)
[2016-11-27 04:55] LABS: ALBUMIN 2.6 G/DL (3.5-5.0); BUN (BLOOD UREA NITROGEN) 29 MG/DL (6-23); CALCIUM, SERUM 8.7 MG/DL (8.5-10.4); CHLORIDE, SERUM 107 MMOL/L (96-112); CO2 (CARBON DIOXIDE) 27 MMOL/L (24-34); CREATININE 0.67 MG/DL (0.55-1.02); GFR AFRICAN AMERICAN 95 ML/MIN (>=60); GFR NON AFRICAN AMERICAN 82 ML/MIN (>=60); GLUCOSE, SERUM 197 MG/DL (60-99); PHOSPHORUS, SERUM 2.7 MG/DL (2.5-4.5); POTASSIUM, SERUM 3.9 MMOL/L (3.5-5.3); SODIUM, SERUM 141 MMOL/L (135-148)
[2016-11-28 06:39] LABS: CALCIUM, SERUM 8.7 MG/DL (8.5-10.4); CHLORIDE, SERUM 104 MMOL/L (96-112); CO2 (CARBON DIOXIDE) 26 MMOL/L (24-34); CREATININE 0.68 MG/DL (0.55-1.02); GFR AFRICAN AMERICAN 94 ML/MIN (>=60); GFR NON AFRICAN AMERICAN 81 ML/MIN (>=60); GLUCOSE, SERUM 208 MG/DL (60-99); SODIUM, SERUM 137 MMOL/L (135-148)
[2016-11-28 06:40] LABS: BUN (BLOOD UREA NITROGEN) 23 MG/DL (6-23); POTASSIUM, SERUM 4.9 MMOL/L (3.5-5.3)
[2016-11-28 07:45] LABS: CREATININE 1.1 MG/DL (0.55-1.02)
[2017-02-06] MEDS ORDERED: NORV5 PO (21:18)
[2017-02-06] MEDS ORDERED: ELIQUIS 5 MG TAB5 MG PO (21:18)
[2017-02-06] MEDS ORDERED: LIPITOR80 MG PO (21:18)
[2017-02-06] MEDS ORDERED: ASAB PO (21:18)
[2017-02-06] MEDS ORDERED: HUMALOG SC (21:18)
[2017-02-06] MEDS ORDERED: PEP20 PO (21:19)
[2017-02-06] MEDS ORDERED: TUMSROLL PO (21:19)
[2017-02-06] MEDS ORDERED: LEVEMIR SC (21:19)
[2017-02-06] MEDS ORDERED: ZOFRAN4 PO (21:20)
[2017-02-06] MEDS ORDERED: XALAT OPH (21:20)
[2017-02-06] MEDS ORDERED: TRAN200 PO (21:20)
[2017-02-06] MEDS ORDERED: MYTAB GAS80 MG PO (21:20)
[2017-02-06] MEDS ORDERED: T PO (21:21)
[2017-02-06] MEDS ORDERED: ALTACE10 MG PO (21:22)
[2017-02-06] MEDS ORDERED: MURO1285% OPH (21:22)
[2017-02-06] MEDS ORDERED: SPIRO25 PO (21:22)
[2017-02-06] MEDS ORDERED: MAALOX PO (21:22)
[2017-02-06] MEDS ORDERED: PROTONIX PO (21:23)
[2017-02-06] MEDS ORDERED: ATV.5 PO (21:23)
[2017-02-10] MEDS ORDERED: ELIQUIS 5 MG TAB5 MG PO (16:43)
[2017-02-10] MEDS ORDERED: ALTACE10 MG PO (16:44)
[2017-02-10] MEDS ORDERED: LIPITOR80 MG PO (16:44)
[2017-02-10] MEDS ORDERED: PEP20 PO (16:44)
[2017-02-10] MEDS ORDERED: TRAN200 PO (16:44)
[2017-02-10] MEDS ORDERED: XALAT OPH (16:46)
[2017-02-10] MEDS ORDERED: HUMALOG SC (16:46)
[2017-02-10] MEDS ORDERED: ZANAFLEX2 MG PO (16:46)
[2017-02-10] MEDS ORDERED: PROTONIX PO (16:46)
[2017-02-10] MEDS ORDERED: LEVEMIR SC (16:47)
[2017-02-10] MEDS ORDERED: HALF81 PO (16:47)
[2017-02-10] MEDS ORDERED: TUMSROLL PO (16:48)
[2017-02-10] MEDS ORDERED: MURO1282% OPH (16:49)
[2017-02-10] MEDS ORDERED: MI-ACID PO (16:49)
[2017-02-10] MEDS ORDERED: MURO5OOIN OPH (16:50)
[2017-02-10] MEDS ORDERED: ATV.5 PO (16:51)
[2017-02-10] MEDS ORDERED: 8 HOUR650 MG PO (16:51)
[2017-02-10] MEDS ORDERED: NORCO1 TA2 PO ×2 (16:52)
[2017-02-10] MEDS ORDERED: RISAMINE OINTMENT TOP (16:53)
[2017-02-10] MEDS ORDERED: PROBIOTIC PO (16:53)
[2017-02-10] MEDS ORDERED: LEVAQUIN750 MG PO (16:54)
[2017-02-10] MEDS ORDERED: ZOFRAN ODT4 MG PO (16:55)
[2017-02-10] MEDS ORDERED: CEFT5 PO (16:55)
== END 2016-11-29 13:02 | DRG 64 ==
LOC: ER 14:20 → 1SO 15:50 → CCU 11-21 12:24 → 1SO 11-23 15:25
PROVIDERS: Emergency Medicine; Hospitalist; Internal Medicine; Internal Medicine Clinical Cardiac Electrophysiology; Internal Medicine Critical Care Medicine; Internal Medicine Gastroenterology
PROC: 0DH63UZ Insertion of Feeding Device into Stomach, Percutaneous Approach (ICD-10-PCS; principal; 2016-11-24 08:55)
DX: I63.9 Cerebral infarction, unspecified (principal); I21.4 Non-ST elevation (NSTEMI) myocardial infarction; G81.94 Hemiplegia, unspecified affecting left nondominant side; E11.9 Type 2 diabetes mellitus without complications; I25.10 Atherosclerotic heart disease of native coronary artery without angina pectoris; I10 Essential (primary) hypertension; R19.7 Diarrhea, unspecified; I45.10 Unspecified right bundle-branch block; M19.90 Unspecified osteoarthritis, unspecified site; D32.0 Benign neoplasm of cerebral meninges; E78.5 Hyperlipidemia, unspecified; Z95.5 Presence of coronary angioplasty implant and graft; Z85.3 Personal history of malignant neoplasm of breast; Z90.12 Acquired absence of left breast and nipple; Z82.49 Family history of ischemic heart disease and other diseases of the circulatory system; Z98.890 Other specified postprocedural states; I48.0 Paroxysmal atrial fibrillation; Z79.84 Long term (current) use of oral hypoglycemic drugs; B00.1 Herpesviral vesicular dermatitis
CPT/HCPCS: 36415; 70450; 70496; 70498; 70544; 70547; 70551; 71010; 74000; 74230; 80048; 80053; 80061; 80069; 82550; 82553; 82962; 83036; 83735; 84484; 85025; 85610; 85730; 86850; 86900; 86901; 87641; 92611-GN; 93005; 93306; 97110-GO; 97110-GP; 97112-GO; 97162-GP; 97166-GO; 97530-GO; 97530-GP; 97535-GO; 99291; A9270-GY; G8978-CM-GP; G8979-CL-GP; G8996-CN-GN; G8997-CN-GN; G8998-CN-GN; J0282; J0360; J0690; J2370; J2405; Q9967